=== PATIENT | female | born 2000 | race American Indian/Alaskan Native ===

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

== ENCOUNTER 2020-02-28 20:12 | Emergency (ER) | payer SELFPAY | END 2020-02-28 23:31 | disposition left against medical advice (07) | LOC: ED 20:12 | DX: Z20.2 Contact with and (suspected) exposure to infections with a predominantly sexual mode of transmission (principal); Z53.21 Procedure and treatment not carried out due to patient leaving prior to being seen by health care provider ==

== ENCOUNTER 2020-05-25 14:37 | Emergency (ER) | payer SELFPAY ==
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
[2020-05-25 15:48] LABS: Hematocrit 46.4 % (30.3-42.9); Hemoglobin 15.5 gm/dl (10.1-14.3); Mean Corpuscular HGB Conc 33 % (30-34); Mean Corpuscular Volume 88 fl (79-97); Platelet Count 199 K/mm3 (140-440); Red Blood Count 5.26 M/mm3 (3.65-5.03); Red Cell Distribution Width 17.4 % (13.2-15.2)
[2020-05-25 15:49] LABS: Alanine Aminotransferase 11 units/L (7-56); Albumin 4.2 g/dL (3.9-5); Blood Urea Nitrogen 7 mg/dL (7-17); Calcium 9.3 mg/dL (8.4-10.2); Hemolysis Index 4
[2020-05-25 16:06] LABS: BUN/Creatinine Ratio 12
[2020-05-25] MEDS ORDERED: MORPHINE 4 MG/1 ML INJ IV ONE (16:21)
[2020-05-25] MEDS ORDERED: VANCOMYCIN 1,250 MG in SODIUM CHLORIDE 0.9% 500 ML 500 ML IV ONE (16:21)
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
[2020-05-25] MEDS ORDERED: SODIUM CHLORIDE 0.9% 1000 ML 1,000 ML IV ONE (16:22)
[2020-05-25] MEDS ORDERED: POTASSIUM CHLORIDE ER 20 MEQ TAB PO ONE (16:22)
[2020-05-25] MEDS ORDERED: cefTRIAXone/NS 1 GM/50 ML 1 GM/50 ML BAG IV ONE (16:22)
[2020-05-25] MEDS ORDERED: VANCOMYCIN 1,250 MG in SODIUM CHLORIDE 0.9% 250ML 250 ML IV ONE (17:00)
[2020-05-25 17:04] VITALS: BP 122/89
[2020-05-25 20:22] LABS: Total Cells Counted 100
[2020-05-25 20:32] LABS: Platelet Estimate Consistent w Auto; RBC Morphology Normal
== END 2020-05-25 20:23 | disposition short-term general hospital (02) ==
LOC: ED 14:37
DX: S61.259A Open bite of unspecified finger without damage to nail, initial encounter (principal); E87.6 Hypokalemia; M65.88 Other synovitis and tenosynovitis, other site; Z79.899 Other long term (current) drug therapy; W50.3XXA Accidental bite by another person, initial encounter; Y93.89 Activity, other specified; Y92.89 Other specified places as the place of occurrence of the external cause; Y99.8 Other external cause status
CPT/HCPCS: 36415; 73140; 80053; 82140; 82550; 83735; 85007; 85025; 87040; 96365; 96366; 96368; 96375; 99285; J0696; J2270; J3370; J7030; J7050

== ENCOUNTER 2020-09-19 13:39 | Emergency (ER) | payer SELFPAY ==
[2020-09-19 14:02] VITALS: BP 129/88
[2020-09-19] MEDS ORDERED: LORazepam 1 MG TAB PO ONE (14:40)
[2020-09-19] MEDS ORDERED: IBUPROFEN 600 MG TAB PO ONE (14:40)
[2020-09-19] MEDS ORDERED: LIDOCAINE-MPF (1%) 10 MG/1 ML VIAL 5 ML INFILTRATI ONE (14:41)
--- NOTE | 2020-09-19 14:43 | Emergency Department Report ---
ED Female HPI - General Chief complaint: Urogenital-Female Stated complaint: VAGINAL ABSCESS Time Seen by Provider: 09/19/20 14:39 Source: patient Mode of arrival: Ambulatory Limitations: No Limitations - History of Present Illness Initial comments: 20-year-old -[place] female presents to the emergency room complaining of a cyst to her vaginal area that is extremely painful and persistent. Patient states she has had a history of this just last month. Patient states that she had completed her antibiotics. She reports she was never told to follow-up with the [facility]. Patient states this has been going on since for 5 days. Aggravating factors is walking movement touching. Alleviating factors with nothing. Reports she has felt warm but does not know if she had a fever. Patient reports her last menstrual period was the beginning of August. - Related Data Previous Rx's Medication Instructions Recorded Last Taken Type Acetaminophen/Codeine [Tylenol 1 tab PO Q6H PRN #12 tab 12/04/19 Unknown Rx /Codeine # 3 tab] Clindamycin [Clindamycin CAP] 300 mg PO Q8HR #60 capsule 12/04/19 Unknown Rx Ibuprofen [Motrin] 600 mg PO Q8H PRN #30 tablet 12/04/19 Unknown Rx Ondansetron [Zofran Odt] 4 mg PO Q6HR PRN #20 tab.rapdis 12/04/19 Unknown Rx Sulfamethoxazole/Trimethoprim 1 each PO Q12H #20 tablet 12/04/19 Unknown Rx [Bactrim DS TAB] Sulfamethoxazole/Trimethoprim 1 each PO BID 10 Days #20 tablet 09/19/20 Unknown Rx [Bactrim DS TAB] metroNIDAZOLE [Flagyl] 500 mg PO Q12HR 7 Days #14 tab 09/19/20 Unknown Rx Allergies Allergy/AdvReac Type Severity Reaction Status Date / Time No Known Allergies Allergy Unverified 07/13/19 01:39 ED Review of Systems ROS: Stated complaint: VAGINAL ABSCESS Other details as noted in HPI Comment: All other systems reviewed and negative ED Past Medical Hx - Past Medical History Previous Medical History?: No - Surgical History Past Surgical History?: No Additional Surgical History: - Social History Smoking Status: Never Smoker - Medications Home Medications: Home Medications Medication Instructions Recorded Confirmed Last Taken Type Acetaminophen/Codeine [Tylenol 1 tab PO Q6H PRN #12 tab 12/04/19 Unknown Rx /Codeine # 3 tab] Clindamycin [Clindamycin CAP] 300 mg PO Q8HR #60 capsule 12/04/19 Unknown Rx Ibuprofen [Motrin] 600 mg PO Q8H PRN #30 tablet 12/04/19 Unknown Rx Ondansetron [Zofran Odt] 4 mg PO Q6HR PRN #20 tab.rapdis 12/04/19 Unknown Rx Sulfamethoxazole/Trimethoprim 1 each PO Q12H #20 tablet 12/04/19 Unknown Rx [Bactrim DS TAB] Sulfamethoxazole/Trimethoprim 1 each PO BID 10 Days #20 tablet 09/19/20 Unknown Rx [Bactrim DS TAB] metroNIDAZOLE [Flagyl] 500 mg PO Q12HR 7 Days #14 tab 09/19/20 Unknown Rx ED Physical Exam - General Limitations: No Limitations General appearance: alert, in distress (Crying) - Head Head exam: Present: atraumatic, normocephalic - Eye Eye exam: Present: normal appearance, other (Tearful) - ENT ENT exam: Present: mucous membranes moist - Neck Neck exam: Present: normal inspection, full ROM - Respiratory Respiratory exam: Absent: accessory muscle use - Cardiovascular Cardiovascular Exam: Present: regular rate - External exam: Present: erythema, swelling, other (Bartholin cyst left labia tender to touch) - Extremities Exam Extremities exam: Present: normal inspection, full ROM - Back Exam Back exam: Present: normal inspection, full ROM - Neurological Exam Neurological exam: Present: alert, oriented X3 - Psychiatric Psychiatric exam: Present: normal affect, normal mood - Expanded Skin Exam Expanded Type of lesion: Present: abscess Distribution of rash: genitals Description of rash: Present: size (Golf ball), tenderness, erythematous, swelling, fluctuant ED Course Vital Signs 09/19/20 14:02 Temperature 98.3 F Pulse Rate 70 Respiratory 16 Rate Blood Pressure 129/88 [Right] O2 Sat by Pulse 98 Oximetry - I & D Right Vagina Type of Procedure: Simple Blade Size: 11 I & D Procedure: betadine prep, sterile drapes applied, sterile dressing applied Progress: Patient tolerated fair ED Medical Decision Making - Medical Decision Making 20-year-old -[place] female presents to the emergency room complaining of a cyst to her vaginal area that is extremely painful and persistent. Patient states she has had a history of this just last month. Patient states that she had completed her antibiotics. She reports she was never told to follow-up with the [facility]. Patient states this has been going on since for 5 days. Aggravating factors is walking movement touching. Alleviating factors with nothing. Reports she has felt warm but does not know if she had a fever. Patient reports her last menstrual period was the beginning of August. Ibuprofen 600 mg and Ativan 0.5 mg. Prior to procedure. Critical care attestation.: If time is entered above; I have spent that time in minutes in the direct care of this critically ill patient, excluding procedure time. ED Disposition Clinical Impression: Abscess of right Bartholin's gland Disposition: TO HOME OR SELFCARE Is pt being admited?: No Does the pt Need Aspirin: No Condition: Stable Instructions: Skin Abscess, [id number], Bartholin's Cyst, [id number] Additional Instructions: Please complete antibiotics as prescribed. Pain medication as needed. Warm compresses to the vaginal area. Very important for you to follow-up with [facility]. I have listed several below for your convenience Prescriptions: Sulfamethoxazole/Trimethoprim [Bactrim DS TAB] 1 each PO BID 10 Days #20 tablet metroNIDAZOLE [Flagyl] 500 mg PO Q12HR 7 Days #14 tab Referrals: [facility] [Provider Group] - 3-5 Days [facility] [Provider Group] - 3-5 Days [facility] [Provider Group] - 3-5 Days Forms: Work/School Release Form(ED)
== END 2020-09-19 16:15 | disposition home or self-care (01) ==
LOC: ED 13:39
DX: N75.1 Abscess of Bartholin's gland (principal); Z79.899 Other long term (current) drug therapy
CPT/HCPCS: 99282